=== PATIENT | female | born 1990 | race Caucasian/White ===

== ENCOUNTER 2020-02-17 09:35 | Day surgery (SDC) | payer BC ==
[~2020-02-17 09:35] MED LIST: Lactated Ringers 1,000 ML IV SCH
[2020-02-17] MEDS ORDERED: Propofol 200 MG/20 ML SDV ONE (09:48)
[2020-02-17] MEDS ORDERED: Midazolam 1 MG/ML 2 ML SDV ONE (09:48)
[2020-02-17] MEDS ORDERED: Dexamethasone 4 MG/ML 5 ML MDV ONE (09:49)
[2020-02-17] MEDS ORDERED: Ondansetron 4 MG/2 ML SDV ONE (09:49)
[2020-02-17] MEDS ORDERED: Ketorolac 30 MG/ML SDV ONE (09:49)
[2020-02-17] MEDS ORDERED: fentaNYL 100 MCG/2 ML SDV ONE (09:49)
[2020-02-17] MEDS ORDERED: Furosemide 40 MG/4 ML VIAL ONE (10:12)
--- NOTE | 2020-02-17 10:28 | PCM.PREANE ---
Preanesthetic Assessment - Anesthesia/Transfusion/Family Hx Anesthesia History: Prior Anesthesia Without Reaction Other Type of Anesthesia Reaction Comment: Last surgery slow to awaken, but no known problem Family History of Anesthesia Reaction: No Transfusion History: No Prior Transfusion(s) Intubation History: Unknown - Review of Systems General: No Symptoms Pulmonary: No Symptoms Cardiovascular: No Symptoms Gastrointestinal: No Symptoms Neurological: No Symptoms Other: Reports: None - Physical Assessment Height: 5 ft 5 in Weight: 93.894 kg ASA Class: 2 Mental Status: Alert & Oriented x3 Airway Class: Mallampati = 2 Dentition: Reports: Normal Dentition Thyro-Mental Finger Breadths: 3 Mouth Opening Finger Breadths: 2 ROM/Head Extension: Full Lungs: Clear to Auscultation, Normal Respiratory Effort Cardiovascular: Regular Rate, Regular Rhythm - Lab Values: Laboratory Last Values WBC 7.58 K/uL (4.0-11.0) 02/17/20 10:05 RBC 4.83 M/uL (4.30-5.90) 02/17/20 10:05 Hgb 12.4 g/dL (12.0-16.0) 02/17/20 10:05 Hct 39.4 % (36.0-46.0) 02/17/20 10:05 MCV 81.6 fL (80.0-98.0) 02/17/20 10:05 MCH 25.7 pg (27.0-32.0) L 02/17/20 10:05 MCHC 31.5 g/dL (31.0-37.0) 02/17/20 10:05 RDW Std Deviation 43.5 fl (28.0-62.0) 02/17/20 10:05 RDW Coeff of Eddie 15 % (11.0-15.0) 02/17/20 10:05 Plt Count 337 K/uL (150-400) 02/17/20 10:05 MPV 9.40 fL (7.40-12.00) 02/17/20 10:05 Nucleated RBC % 0.0 /100WBC 02/17/20 10:05 Nucleated RBCs # 0 K/uL 02/17/20 10:05 - Allergies Allergies/Adverse Reactions: Allergies Allergy/AdvReac Type Severity Reaction Status Date / Time No Known Allergies Allergy Verified 02/12/20 09:04 - Blood Blood Available: No - Anesthesia Plan Pre-Op Medication Ordered: None - Acknowledgements Anesthesia Type Planned: General Anesthesia Pt an Appropriate Candidate for the Planned Anesthesia: Yes Alternatives and Risks of Anesthesia Discussed w Pt/Guardian: Yes Pt/Guardian Understands and Agrees with Anesthesia Plan: Yes PreAnesthesia Questionnaire HEENT History: Reports: None Cardiovascular History: Reports: None Other Cardiovascular History: chest pain in the past Respiratory History: Reports: None Gastrointestinal History: Reports: GERD Genitourinary History: Reports: None VP PLATFORMS History: Reports: Polycystic Ovaries Musculoskeletal History: Reports: Fracture Other Musculoskeletal History: states had a fractured knee when a child Neurological History: Reports: None Psychiatric History: Reports: Anxiety Endocrine/Metabolic History: Reports: Obesity/BMI 30+ (BMI 34.4) Hematologic History: Reports: None Immunologic History: Reports: None Oncologic (Cancer) History: Reports: None Dermatologic History: Reports: None - Infectious Disease History Infectious Disease History: Reports: None - Past Surgical History Head Surgeries/Procedures: Reports: None HEENT Surgical History: Reports: Tonsillectomy GI Surgical History: Reports: Appendectomy Female Surgical History: Reports: Breast Reduction Other Female Surgeries/Procedures: laparoscopy x2, '08 and ', had hysteroscopy '06 Neurological Surgical History: Reports: None Musculoskeletal Surgical History: Reports: None Dermatological Surgical History: Reports: Other (See Below) (liposuction) - SUBSTANCE USE Tobacco Use Status *Q: Never Tobacco User - HOME MEDS Home Medications: Home Meds Calcium Carbonate [Tums] 3 tab.chew PO TIDMEALS PRN 08/26/15 [History] Iron Supplement 1 tab PO DAILY 02/12/20 [History] Tranexamic Acid [Lysteda] 3 tab PO TIDMEALS 02/12/20 [History] - CURRENT (IN HOUSE) MEDS Current Meds: Current Medications Lactated Ringer's (Ringers, Lactated) 1,000 mls @ 125 mls/hr IV ASDIRECTED FRANCISCA Discontinued Medications Dexamethasone (Dexamethasone) Confirm Administered Dose 20 mg .ROUTE .STK-MED ONE Stop: 02/17/20 09:50 Fentanyl (Sublimaze) Confirm Administered Dose 100 mcg .ROUTE .STK-MED ONE Stop: 02/17/20 09:50 Furosemide (Lasix) Confirm Administered Dose 40 mg .ROUTE .STK-MED ONE Stop: 02/17/20 10:13 Ketorolac Tromethamine (Toradol) Confirm Administered Dose 30 mg .ROUTE .STK-MED ONE Stop: 02/17/20 09:50 Lidocaine HCl (Xylocaine-Mpf 1%) Confirm Administered Dose 5 ml .ROUTE .STK-MED ONE Stop: 02/17/20 09:50 Midazolam HCl (Versed 1 Mg/Ml) Confirm Administered Dose 2 mg .ROUTE .STK-MED ONE Stop: 02/17/20 09:49 Ondansetron HCl (Zofran) Confirm Administered Dose 4 mg .ROUTE .STK-MED ONE Stop: 02/17/20 09:50 Propofol (Diprivan 20 Ml) Confirm Administered Dose 200 mg .ROUTE .STK-MED ONE Stop: 02/17/20 09:49
[2020-02-17] MEDS ORDERED: 50% Dextrose in Water 50 ML Syringe IVPUSH PRN (11:37)
[2020-02-17] MEDS ORDERED: Naloxone 0.4 MG/ML Syringe IVPUSH PRN (11:37)
[2020-02-17] MEDS ORDERED: Albuterol 0.083% 2.5 MG/3 ML Neb Soln NEB PRN (11:37)
[2020-02-17] MEDS ORDERED: HYDROmorphone 2 MG/ML Syringe IVPUSH PRN (11:37)
[2020-02-17] MEDS ORDERED: Ondansetron 4 MG/2 ML SDV IVPUSH PRN (11:37)
[2020-02-17] MEDS ORDERED: Atropine 0.1 MG/ML 10 ML Syringe IVPUSH PRN ×2 (11:37)
[2020-02-17] MEDS ORDERED: fentaNYL 100 MCG/2 ML SDV IVPUSH PRN (11:37)
[2020-02-17] MEDS ORDERED: EPINEPHrine 1:10,000 1 MG/10 ML Syringe IVPUSH PRN (11:37)
[2020-02-17 11:58] LABS: BILIRUBIN INDIRECT 0.2
--- NOTE | 2020-02-17 12:35 | PCM.OPNOTE ---
- General Post-Op/Procedure Note Date of Surgery/Procedure: 02/17/20 Operative Procedure(s): hysteroscopic lysis of adhesions, polypectomy and fractional D&C Findings: Uterus anteverted, sounds to 7 cm. Left mid uterus there are two dense adhesions extending from the anterior to posterior wall laterally, there is prominent irregular endometrium in the right upper uterus, there is a small polyp within the left tubal ostium. Pre Op Diagnosis: abnormal uterine bleeding, abnormal saline enhanced ultrasound. Post-Op Diagnosis: Same and uterine adhesions, uterine polyp Anesthesia Technique: General LMA Primary Surgeon: Dixie Kelley Anesthesia Provider: Neyda Durán Pathology: endometrial curettings and directed biopsy; endometrial polyp, endocervical curettings. Fluid Replacement, Intraop: 900 EBL in mLs: 10 Drain/Tube Comments:: hysteroscopic deficit 400 ml NS Complications: None Condition: Good Free Text/Narrative:: Intake & Output 02/16/20 02/17/20 02/17/20 22:59 06:59 14:59 Intake Total 950 Balance 950
[2020-02-17] MEDS ORDERED: Ibuprofen 400 MG Tab PO ONE (12:49)
[2020-02-17] MEDS ORDERED: Ibuprofen 400 MG Tab ONE (12:49)
--- NOTE | 2020-02-17 12:53 | PCM.POSTAN ---
POST ANESTHESIA ASSESSMENT - MENTAL STATUS Mental Status: Alert, Oriented - VITAL SIGNS Vital Signs: Last Vital Signs Temp 36.6 C 02/17/20 12:15 Pulse 84 02/17/20 12:30 Resp 14 02/17/20 12:30 BP 120/70 02/17/20 12:30 Pulse Ox 98 02/17/20 12:30 - RESPIRATORY Respiratory Status: Respiratory Rate WNL, Airway Patent, O2 Saturation Stable - CARDIOVASCULAR CV Status: Pulse Rate WNL, Blood Pressure Stable - GASTROINTESTINAL GI Status: No Symptoms - PAIN Pain Score: 0 - POST OP HYDRATION Hydration Status: Adequate & Stable - OBSERVATIONS Free Text/Narrative:: No anesthesia problems
--- NOTE | 2020-02-17 13:15 | PCM48HPAN ---
Post Anesthesia Note - EVALUATION WITHIN 48HRS OF ANESTHETIC Vital Signs in Normal Range: Yes Patient Participated in Evaluation: Yes Respiratory Function Stable: Yes Airway Patent: Yes Cardiovascular Function Stable: Yes Hydration Status Stable: Yes Pain Control Satisfactory: Yes Nausea and Vomiting Control Satisfactory: Yes Mental Status Recovered: Yes Vital Signs: Last Vital Signs Temp 36.6 C 02/17/20 12:15 Pulse 84 02/17/20 12:30 Resp 14 02/17/20 12:30 BP 120/70 02/17/20 12:30 Pulse Ox 98 02/17/20 12:30 - COMMENTS/OBSERVATIONS Free Text/Narrative:: no anesthesia problems
[2020-02-17 14:03] VITALS: BP 111/75; PULSE 85
--- NOTE | 2020-02-17 14:41 | OR ---
SURGEON: Dixie Kelley M.D. DATE OF PROCEDURE: 02/17/2020 PREOPERATIVE DIAGNOSES: 1. Abnormal uterine bleeding. 2. Abnormal saline ultrasound. POSTOPERATIVE DIAGNOSES: 1. Abnormal uterine bleeding. 2. Abnormal saline ultrasound. 3. Uterine adhesion. 4. Uterine polyp. PROCEDURES: 1. Hysteroscopic lysis of adhesion. 2. Polypectomy. 3. Fractional dilatation and curettage. PRIMARY SURGEON: Dixie Kelley MD ANESTHESIA: General LMA. ESTIMATED BLOOD LOSS: Less than 10 mL. FINDINGS: Uterus mid position, sounds to 7 cm. On hysteroscopy, there was irregular prominent endometrium in the right uterine cornua that was removed with a MyoSure. The right tubal ostium was then clearly visualized. I had difficulty visualizing the left tubal ostium. However, on retracting the hysteroscope, I did identify the large adhesion on the left side of the uterus that was suspected on saline ultrasound. This area was lysed with the MyoSure, and then I was able to see the left tubal ostia where there was a small polyp. No other abnormalities of the endometrium were noted. The patient expressed concern about a cervical cyst, and this was a nabothian cyst located at 5 o'clock on the cervix. A tenaculum was placed in the spot, and the mucus was released from the cyst. SPECIMENS: Endometrial directed biopsies and polyp, left tubal polyp, and endocervical curettings. HYSTEROSCOPIC DEFICIT: 400 mL. COMPLICATIONS: There were no known complications. The patient was transferred to Recovery in good condition. BRIEF HISTORY: This is a 29-year-old female. She presents having had prolonged episodes of abnormal bleeding. Saline ultrasound showed a thickened area of the endometrium transversing the wall of the uterus, suspected area of adhesion. Therefore, I did recommend proceeding with a hysteroscopic evaluation and possible lysis of adhesions and surgery as indicated. She does, at this point, desire to proceed. Her saline ultrasound was actually performed in July, and the surgery was delayed due to COVID. She now presents to proceed with the surgery. Risks discussed including bleeding, infection, uterine perforation with injury to surrounding viscera, risk of recurrence of adhesion, risk of fluid overload, and risk of thromboembolic event. Understanding all these risks, she does desire to proceed. DESCRIPTION OF PROCEDURE: With the patient in dorsal lithotomy position, under adequate general LMA analgesia, the perineum and vagina were prepped with Betadine and draped in the usual sterile fashion for vaginal surgery. SCDs were in place, and the bladder had been drained with a red Lazar catheter. Appropriate time-out was held. Bimanual examination revealed a mid position, 7-week size uterus. Speculum was placed in the vagina. The nabothian cyst of the patient's concern was identified. The tenaculum site that was chosen was at the 5 o'clock position of the nabothian cyst to allow release of the mucus from the cyst, and this was accomplished. The cervix was dilated to a 6 mm Hegar dilator. The hysteroscope was placed into the uterine cavity with findings as noted above. The MyoSure device was then placed. The irregular frondlike polypoid epithelium at the upper right uterus was removed, allowing visualization of the right tubal ostia. As the hysteroscope was retracted, the left-sided dense adhesions were noted, and these were lysed and removed with the MyoSure which allowed visualization of the left tubal ostia where a polyp was noted. Due to the location of the polyp, which was actually within the tubal ostium, I utilized a grasper and grasped the polyp, rotating it multiple times to twist the base, and then the polyp was easily removed. This being completed, the entire uterine cavity was able to be visualized. Bilateral tubal ostia appeared normal. The adhesions were resolved. The cervical canal appeared normal. Therefore, the hysteroscopy was completed. Sharp curettage of the endocervix was then performed using a sharp curette followed by a Cytobrush. The tenaculum was removed, and the site of the tenaculum was cauterized for hemostasis. All the instruments removed from the vagina. Final sponge, needle, and instrument counts were reported as correct. There were no known complications. The patient was transferred to Recovery in good condition. RAJESH / YENY /[id number]
== END 2020-02-17 13:20 | disposition home or self-care (01) ==
LOC: MW.SDS 09:35
PROVIDERS: ATTEND Obstetrics & Gynecology
DX: N84.0 Polyp of corpus uteri (principal); N73.6 Female pelvic peritoneal adhesions (postinfective); Z79.899 Other long term (current) drug therapy; F32.9 Major depressive disorder, single episode, unspecified; Z90.49 Acquired absence of other specified parts of digestive tract; Z98.890 Other specified postprocedural states
CPT/HCPCS: 36415; 58558; 58559; 80076; 82306; 84703; 85027; A9270; J1100; J1885; J2001; J2250; J2704; J7120; 00952; 88305; J1940; J2405; J3010

== ENCOUNTER 2023-10-01 06:21 | Day surgery (SDC) | payer BC ==
[2023-10-01] MEDS: Scopalamine 1mg/3day Transdermal Patch TOP ONE (06:30)
[2023-10-01] MEDS ORDERED: fentaNYL 100 MCG/2 ML SDV ONE (06:52)
[2023-10-01] MEDS ORDERED: propofoL 50 ML ONE (06:52)
[2023-10-01] MEDS ORDERED: Ondansetron 4 MG/2 ML SDV ONE (06:53)
[2023-10-01] MEDS ORDERED: Ketorolac 30 MG/ML SDV ONE (06:53)
[2023-10-01] MEDS ORDERED: Dexamethasone 4 MG/ML 5 ML MDV ONE (06:53)
[2023-10-01] MEDS ORDERED: Rocuronium Bromide 50 MG/5 ML Syringe ONE (06:53)
[2023-10-01] MEDS ORDERED: Lidocaine 2% 5 ML SDV ONE (06:54)
[2023-10-01] MEDS: Lactated Ringers 1,000 ML IV SCH (06:55)
[2023-10-01] MEDS ORDERED: droPERidol 5 MG/2 ML SDV IVPUSH PRN (07:00)
[2023-10-01] MEDS ORDERED: Naloxone 0.4 MG/ML SDV IVPUSH PRN (07:00)
[2023-10-01] MEDS ORDERED: Albuterol 0.083% 2.5 MG/3 ML Neb Soln NEB PRN (07:00)
[2023-10-01] MEDS ORDERED: HYDROmorphone 1 MG/ML Syringe IVPUSH PRN (07:00)
[2023-10-01] MEDS ORDERED: Metoclopramide 10 MG/2 ML SDV IVPUSH PRN (07:00)
[2023-10-01] MEDS ORDERED: Ondansetron 4 MG/2 ML SDV IVPUSH PRN (07:00)
[2023-10-01] MEDS ORDERED: Morphine 2 MG/ML SYRINGE IVPUSH PRN (07:00)
[2023-10-01] MEDS ORDERED: Sugammadex Sodium 200 MG/2 ML VIAL IV ONE (07:01)
[2023-10-01] MEDS ORDERED: Water For Injection, Sterile 20 ML ONE (07:22)
[2023-10-01] MEDS ORDERED: dexmedeTOMIDine HCl 200 MCG/2 ML SDV ONE (07:22)
[2023-10-01] MEDS ORDERED: Magnesium Sulfate (4.06 MEQ/ML) 5 GM/10 ML SDV ONE (08:01)
[2023-10-01] MEDS: fentaNYL 50 MCG/ML SDV IVPUSH PRN (09:10)
[2023-10-01 10:57] VITALS: BP 110/60; PULSE 76
== END 2023-10-01 10:25 | disposition home or self-care (01) ==
LOC: MW.SDS 06:21
PROVIDERS: ATTEND Obstetrics & Gynecology
DX: N85.02 Endometrial intraepithelial neoplasia [EIN] (principal); F32.A Depression, unspecified; K21.9 Gastro-esophageal reflux disease without esophagitis; F41.9 Anxiety disorder, unspecified; Z79.899 Other long term (current) drug therapy
CPT/HCPCS: 58558; A9270; C1729; J0131; J1100; J1885; J2704; J3010; J3475; J3490; J7120; 00952; J2405